=== PATIENT | female | born 1935 | race Caucasian/White ===

== ENCOUNTER 2021-01-25 01:06 | Outpatient (CLI) | payer OTHER, SELFPAY ==
--- NOTE | 2021-01-25 | DI.NM_ITS ---
APPROVED REPORT Exam: Exercise Treadmill Patient Location: Out-Patient Room/Bed: Stress Nurse: Dennise Strange RN; Anthony Jessica RN Ordering Provider:SERG ROJAS, Contact Number: [phone] BMI: 29.04 Baseline Rhythm: Sinus Rhythm Comment: rare PVCs Indications: chest pain Medical History Medical History: Bradycardia, HLD Cardiac Medications: Metoprolol succinate, ASA, Calcium carb, lecithin Allergies: atendronate sodium, aspirin, codeine, propoxyphene Cardiac Risk Factors: family hx, HLD, asthma Previous Cardiac Procedures: none Pretest Chest Pain Characteristics: none Exercise History: Sedentary Physical Disabilities: none Lung Sounds: Clear to auscultation Heart Sounds: Regular Stress Test Details Test: Exercise stress testing was performed using a Chad protocol. Rest Isotope: Tc-99m Sestamibi. Dose: 10 Date: 01/25/2021 Injection Time: 0920 Stress Isotope: Tc-99m Sestamibi. Dose: 29.9 Date: 01/25/2021 Injection Time: 1151 HR Resting HR Supine: 66 bpm Max Heart Rate (APMHR): 137.972579 bpm Resting HR Standin bpm Target HR (85% APMHR): 116.474355 bpm Max HR Achieved: 135 bpm % of APMHR: 98.54 Recovery HR: 77 bpm HR response to stress: Normal HR response to stress BP Resting BP Supine: 178/78 mmHg Resting BP Standin/74 mmHg Max BP: 196/68 mmHg Recovery BP: 134/82 mmHg BP response to stress: Normal blood pressure response to stress. ECG Resting ECG: Sinus Rhythm Ectopy: rare PVC Stress ECG: Sinus Tachycardia ST Change: No significant ST segment changes noted Arrhythmia: VPC's Recovery ECG: Sinus Rhythm Recovery ST Change: No significant ST segment changes noted Recovery Arrhythmia: None Clinical Reason for Termination: Fatigue Stress Symptoms: none Exercise duration: 2 min49 sec Highest Stage Reached: Stage 1: 1.7 mph at 10% grade. Exercise capacity: 4.64 METs Rate Pressure Product: [id number] Stress ECG Conclusion 1. The patient exercised for 2 minutes and 50 seconds (4.6 METS). Exercise was stopped due to fatigu e. 2. Patient's blood pressure and heart rate augmented appropriately though the rated which her heart r ate climbed was exaggerated. 3. There is no evidence of ischemia on ECG portion exam. Stress Test Summary STAGE Time (mins) Speed (mph) Grade (%) HR BP SYMPTOMS METS Supine 66 178/78 Standing 75 136/74 1 min recovery 117 196/68 3 min recovery 77 174/76 6 min recovery 77 134/82 MPI Conclusion The patient's ejection fraction was 68% with stress. There were no wall motion abnormalities. There is no evidence of ischemia on the imaging portion exam. This represents a normal SPECT stress test. Radiologist Interpretation Radiologist agrees with Foreign Languages Professor's Interpretation. Radiologist Interpretation by: Beulah Simmons MD Interpretation Date/Time: 01/30/2021 15:52:28
== END 2021-01-25 01:26 ==
PROVIDERS: PCP Internal Medicine; Visit Provider Family Medicine
DX: R07.9 Chest pain, unspecified (principal); I49.3 Ventricular premature depolarization; Z82.49 Family history of ischemic heart disease and other diseases of the circulatory system; E78.5 Hyperlipidemia, unspecified; J45.909 Unspecified asthma, uncomplicated
CPT/HCPCS: 78452; 93016; 93018; 93017

== ENCOUNTER → 2021-01-25 01:27 | Outpatient (CLI) | payer OTHER, SELFPAY ==
--- NOTE | 2021-01-25 | DI.US_ITS ---
Exam(s) US ABDOMEN EXAM: US ABDOMEN CLINICAL HISTORY: ABD PAIN, R10.9 TECHNIQUE: Ultrasound of complete upper abdomen performed using standard protocol. COMPARISON: US LEFTBREAST ULTRASOUND from 05/17/2010 FINDINGS: There is no ascites evident. LIVER: There are no hepatic lesions evident nor obvious dilatation of intrahepatic ducts. GALLBLADDER/BILIARY: Shadowing gallstones are noted. The largest of these measures 1.4 cm. Gallblad vincent wall is not edematous. Patient was apparently not tender over there during scanning today. The common hepatic duct isnot dilated, measuring 2mm at the level of lexy hepatis. PANCREAS: There is no evidence of pancreatic mass nor dilatation of the pancreatic duct. SPLEEN: The spleen is not enlarged and there are no intrasplenic lesions evident. KIDNEYS:Kidneys exhibit normal size with no evidence of solid mass, calculus, nor hydronephrosis. No cortical cysts evident. ABDOMINAL AORTA: There is no evidence of abdominal aortic aneurysm. IVC: Normal diameter where visualized. IMPRESSION: 1. Cholelithiasis. There are shadowing gallstones. No gallbladder wall edema. No dilatation of th e biliary tree. Patient was apparently not tender over the gallbladder during scanning today. 2. No other significant ultrasound findings in the upper abdomen. 3. There is no ascites. DATA REPOSITORY:
== END ==
PROVIDERS: PCP Internal Medicine; Visit Provider Family Medicine
DX: K80.20 Calculus of gallbladder without cholecystitis without obstruction (principal)
CPT/HCPCS: 76700

== ENCOUNTER 2021-04-25 13:25 | Outpatient (REF) | payer OTHER, SELFPAY | END 2021-04-25 13:26 | disposition home or self-care (01) | LOC: NCHCN 13:25 | PROVIDERS: PCP Internal Medicine; Visit Provider Family Medicine | DX: E03.9 Hypothyroidism, unspecified (principal) | CPT/HCPCS: 84443 ==

== ENCOUNTER 2022-02-12 19:37 | Outpatient (REF) | payer MEDICARE, SELFPAY ==
[2022-02-12 16:02] LABS: D-Dimer > 7500 ng/mlFEU (<500)
== END 2022-02-12 19:38 | disposition home or self-care (01) ==
LOC: LBN 19:37
PROVIDERS: PCP Internal Medicine; Visit Provider Nurse Practitioner Family
DX: M79.662 Pain in left lower leg (principal)
CPT/HCPCS: 85379

== ENCOUNTER → 2022-02-13 10:49 | Outpatient (CLI) | payer MEDICARE, SELFPAY ==
--- NOTE | 2022-02-13 | DI.US_ITS ---
Exam(s) US LOWER EXTREMITY VENOUS LT EXAM: US LOWER EXTREMITY VENOUS LT CLINICAL HISTORY: LT CALF PAIN, M79.669; D-DIMER >7500; STARTING ELIQUIS TECHNIQUE: Left lower extremity venous ultrasound performed using grayscale, color-flow, and spectra l Doppler analysis. COMPARISON: No exams were available for comparison FINDINGS: The left common femoral, femoral and popliteal veins demonstrate normal compressibility, augmentation , and color Doppler. The posterior tibial veins are patent. The saphenofemoral junction is unremarka ble. There is no evidence of a Saldana cyst. The soft tissues are unremarkable. IMPRESSION: No evidence of a left lower extremity DVT. DATA REPOSITORY:
== END ==
PROVIDERS: PCP Internal Medicine; Visit Provider Nurse Practitioner Family
DX: M79.662 Pain in left lower leg (principal)
CPT/HCPCS: 93971

== ENCOUNTER 2024-01-22 16:47 | Outpatient (REF) | payer MEDICARE, SELFPAY ==
[2024-01-22 21:22] LABS: HCT 40.1 % (36.0-46.0); HGB 13.7 g/dL (11.2-15.7); MCH 31.9 pg (27.0-33.0); MCHC 34.2 % (32.0-36.0); MCV 93 fL (80-95); MPV 9.7 fL (8.0-11.0); Platelet Count 322 10^3/uL (130-400); RDW 12.5 % (11.7-14.6); RDW-SD 42.5 fL; WBC 7.61 10^3/uL (4.4-10.8)
[2024-01-22 21:36] LABS: ALT 32 U/L (14-59); AST 22 U/L (15-37); Albumin 3.9 g/dL (3.4-5.0); Alkaline Phosphatase 89 U/L (46-116); Anion Gap 10.2 mmol/L (3-11); BUN 15 mg/dL (7-18); Bilirubin, Total 0.42 mg/dL (0.2-1.0); CO2 26.8 mmol/L (21.0-32.0); CREATININE 0.8 mg/dL (0.55-1.02); Calcium 9.1 mg/dL (8.5-10.1); Chloride 101 mmol/L (98-107); Estimated GFR 71.71 (mL/min/1.73m2); Glucose 88 mg/dL (74-106); Potassium 4.5 mmol/L (3.5-5.1); Sodium 138 mmol/L (136-145); Total Protein 6.7 g/dL (6.4-8.2)
== END 2024-01-22 16:48 | disposition home or self-care (01) ==
LOC: NCHCN 16:47
PROVIDERS: PCP Internal Medicine; Visit Provider Family Medicine
DX: Z00.00 Encounter for general adult medical examination without abnormal findings (principal)
CPT/HCPCS: 80053; 85027

== ENCOUNTER 2025-02-02 15:26 | Outpatient (REF) | payer MEDICARE, SELFPAY ==
[2025-02-02 14:25] LABS: HCT 39.7 % (36.0-46.0); HGB 13.1 g/dL (11.2-15.7); MCH 30.5 pg (27.0-33.0); MCHC 33.0 % (32.0-36.0); MCV 92 fL (80-95); MPV 9.6 fL (8.0-11.0); Platelet Count 307 10^3/uL (130-400); RBC 4.30 10^6/uL (3.93-5.22); RDW 12.8 % (11.7-14.6); RDW-SD 42.7 fL; WBC 7.16 10^3/uL (4.4-10.8)
[2025-02-02 14:45] LABS: Anion Gap 5.3 mmol/L (3-11); BUN 17 mg/dL (7-18); CO2 28.7 mmol/L (21.0-32.0); Calcium 9.1 mg/dL (8.5-10.1); Chloride 104 mmol/L (98-107); Estimated GFR 83.65 (mL/min/1.73m2); Glucose 128 mg/dL (74-106); Potassium 4.4 mmol/L (3.5-5.1); Sodium 138 mmol/L (136-145)
== END 2025-02-02 15:27 | disposition home or self-care (01) ==
LOC: NCHCN 15:26
PROVIDERS: PCP Family Medicine; Visit Provider Family Medicine
DX: Z86.74 Personal history of sudden cardiac arrest (principal)
CPT/HCPCS: 80048; 85027